=== PATIENT | male | born 1950 | race Caucasian/White ===

== ENCOUNTER 2017-09-29 07:32 | Outpatient (CLI) | payer MEDICARE, BC ==
[2017-09-29] MEDS ORDERED: ISOVUE-370 76%-LOCM 1 ML ONE (13:12)
== END 2017-09-29 07:33 | disposition home or self-care (01) ==
LOC: BICCT 07:32
PROVIDERS: ATTEND Urology
DX: N30.00 Acute cystitis without hematuria (principal); N28.9 Disorder of kidney and ureter, unspecified; M47.896 Other spondylosis, lumbar region; Z98.84 Bariatric surgery status; Z98.890 Other specified postprocedural states
CPT/HCPCS: 36415; 74178; 82565

== ENCOUNTER 2017-11-02 12:31 | Outpatient (CLI) | payer MEDICARE, BC ==
--- NOTE | 2017-11-09 08:12 | PFT ---
PATIENT HISTORY: HEIGHT: 69 WEIGHT:340 SMOKER: QUIT HOW LONG: SMOKED 15 YRS PACKS PER DAY PRODUCTIVE COUGH: LUNG DISEASE: PHYSICIAN INTERPRETATION FINAL REPORT: Lead Based Paint Technician comments patient and good effort and cooperation FVC 2.65 (58%), FEV1 2.15 (70%), FEV1/FVC 0.81. TLC 4.4. (62%), FRC 1.83 (45%), RV 1.60 (62%). Diffusion 18.89 (74%). There is a symmetric reduction in the FEV1 and FVC. The ratio suggests a restrictive profile. Volume restriction is confirmed by the reduced TLC and RV. Diffusion capacity is at the lower limits of normal, but easily corrects for alveolar ventilation. IMPRESSION: These pulmonary function studies are consistent with moderate restrictive lung disease with normal gas exchange. Body habitus is likely contributing to these findings. Lead Based Paint Technician: Director Trade: LOUEI STARKS
== END 2017-11-02 12:32 | disposition home or self-care (01) ==
LOC: CP 12:31
PROVIDERS: ATTEND Internal Medicine
DX: J20.9 Acute bronchitis, unspecified (principal)
CPT/HCPCS: 94010; 94727; 94729

== ENCOUNTER 2017-11-20 20:06 | Emergency (ER) | payer MEDICARE, BC ==
[2017-11-20 20:27] LABS: Bilirubin Negative (Negative); Blood, Urine Large (Negative); Clarity CLEAR (Clear); Glucose, Urine (Dipstick) Negative (Negative); Leukocyte Moderate (Negative); Nitrite Negative (Negative); Protein, Urine (Dipstick) Negative (Neg-Trace); Specific Gravity, Urine 1.012 (1.002-1.036)
[2017-11-20 20:29] LABS: Bacteria/HPF None Seen HPF (None Seen); Hyaline Casts/LPF 0-3 HYALINE CAST LPF (0-3 Hyaline); RBC/HPF GREATER THAN 50-TNTC HPF (0-3); Squamous Epithelial 0-3 HPF (0-3); WBC/HPF 21-50 HPF (0-3)
[2017-11-20 21:33] LABS: #Eosinphils 0.1 thou/uL (0.0-0.7); #Lymphocytes 0.9 thou/uL (1.20-3.40); #Monocytes 0.6 thou/uL (0.11-0.59); #Neutrophils 8.9 thou/uL (1.40-6.50); %Basophils 0.3 % (0.0-1.0); %Lymphocytes 8.5 % (21.0-51.0); %Monocytes 5.4 % (0.0-10.0); %Neutrophils 84.8 % (42.0-75.0); Hemoglobin 15.7 g/dL (14.0-18.0); Mean Corpuscular HGB CONC 34.7 g/dL (32.0-36.0); Mean Corpuscular Hemoglobin 31.4 pg (27.0-31.0); Mean Corpuscular Volume 90.5 fl (80.0-94.0); Mean Platelet Volume 6.7 fL (7.4-10.4); Platelet Count 234 thou/uL (130-400); RBC Distribution Width 12.6 % (11.5-14.5); Red Blood Cell (RBC) Count 5.02 mill/uL (4.70-6.10); White Blood Cell (WBC) Count 10.5 thou/uL (4.8-10.8)
[2017-11-20] MEDS ORDERED: Lidocaine 1% PF 5 ML VIAL ONE (21:44)
[2017-11-20] MEDS ORDERED: cefTRIAXone\\ROCEPHIN 500 MG VIAL ONE (21:44)
[2017-11-20 21:54] LABS: ALT (SGPT) 25 U/L (8-55); AST (SGOT) 20 U/L (5-34); Albumin 4.3 g/dL (3.4-4.8); Alkaline Phosphatase 95 U/L (40-150); Anion Gap 13 mmol/L (10-20); BUN (Urea Nitrogen) 22 mg/dL (8.4-25.7); Bilirubin, Total 0.8 mg/dL (0.2-1.2); Calc. Creatinine Clearance 0 mL/min (70-130); Calcium 9.9 mg/dL (7.8-10.44); Carbon Dioxide 24 mmol/L (23-31); Chloride 104 mmol/L (98-107); Estimated GFR-MDRD 80; Glucose 113 mg/dL (80-115); Potassium 4.1 mmol/L (3.5-5.1); Protein, Total 7.3 g/dL (5.8-8.1); Sodium 137 mmol/L (136-145)
--- NOTE | 2017-11-21 07:50 | ULT ---
TESTICULAR ULTRASOUND: Date: 11/20/17 HISTORY: Epididymitis. FINDINGS: The testicles demonstrate a normal sonographic appearance bilaterally without evidence of a testicula r mass. The right testicle measures 3.4 cm x 1.8 cm x 2.7 cm. The left testicle measures 3.6 cm x 2.0 cm x 2.4 cm. Doppler evaluation of each testicle with spectral analysis and color flow evaluation demonstrates art erial and venous flow in each testicle. The right epididymis does appear enlarged and is heterogeneous in appearance with increased flow asym metrically compared to the left, likely related to epididymitis. There are small, anechoic structures seen within each epididymis, with anechoic structure right epidi dymis measuring 1.1 cm and on the left, there are two anechoic structures measuring 0.8 cm and 0.7 cm , respectively, likely related to epididymal cysts. There are small bilateral hydroceles present. There is a small mobile hyperechoic structure in the inferior aspect of the left scrotum, which may r epresent a small amount of calcification or debris. IMPRESSION: 1. Evidence for right epididymitis. 2. Bilateral epididymal cysts. 3. Normal appearing bilateral testicles. Arterial and venous flow is documented in each testicle. 4. Small bilateral hydroceles. POS: [facility]
== END 2017-11-21 00:32 | disposition home or self-care (01) ==
LOC: ERS 20:06
DX: N45.1 Epididymitis (principal); E03.9 Hypothyroidism, unspecified; I10 Essential (primary) hypertension; Z79.899 Other long term (current) drug therapy
CPT/HCPCS: 36415; 76870; 80053; 81003; 81015; 85025; 87086; 93976; 96372; J0696; J2001

== ENCOUNTER 2017-12-16 14:30 | Outpatient (CLI) | payer MEDICARE, BC ==
--- NOTE | 2017-12-16 16:27 | MRI ---
MR CERVICAL SPINE WITHOUT AND WITHOUT CONTRAST: INDICATION: History of neck pain. CONTRAST: 120 cc of MultiHance. COMPARISON: Prior MR cervical spine from 11/12/15. FINDINGS: Since the comparison examination, there has been interval performance of an ACDF spanning C4 through C7. At C2-C3, there is a small residual central protrusion without appreciable central canal narrowing. At C3-4, there is central protrusion, facet joint degenerative change without appreciable neural fora marylou narrowing. There is mild central canal narrowing. This is stable to the prior exam. At C4-5, there is a residual broad-based bulge inducing stable mild to moderate central canal narrowi ng. There is likely stable mild bilateral neural foraminal narrowing due to residual uncovertebral hy pertrophy. At C5-6, there is a residual disk-osteophyte complex and uncovertebral hypertrophy inducing mild righ t and moderate left neural foraminal narrowing that appears similar to the prior exam. There is stab le mild to moderate central canal narrowing. At C6-7, there is a residual broad-based osteophyte complex inducing mild to moderate central canal n arrowing with mild bilateral neural foraminal narrowing. At C7-T1, there is a broad-based disk bulge with facet joint degenerative change inducing mild left n eural foraminal narrowing which is stable. Post contrast images reveal no definite abnormal enhancement. IMPRESSION: Post procedure change of anterior cervical diskectomy and fusion involving C4 through C7 with residua l central canal and neural foraminal narrowing as above. POS: [facility]
== END 2017-12-16 14:31 | disposition home or self-care (01) ==
LOC: TBSIIMAG 14:30
PROVIDERS: ATTEND Neurological Surgery
DX: M54.12 Radiculopathy, cervical region (principal); M48.02 Spinal stenosis, cervical region; M99.81 Other biomechanical lesions of cervical region; Z98.1 Arthrodesis status; Z98.890 Other specified postprocedural states
CPT/HCPCS: 72156

== ENCOUNTER 2018-03-16 13:41 | Outpatient (CLI) | payer MEDICARE, BC ==
[~2018-03-16 13:41] MED LIST: Iopamidol 370 76% 100 ML VIAL ONE
== END 2018-03-16 13:42 | disposition home or self-care (01) ==
LOC: BICCT 13:41
PROVIDERS: ATTEND Urology
DX: N28.1 Cyst of kidney, acquired (principal); N28.89 Other specified disorders of kidney and ureter; R93.421 Abnormal radiologic findings on diagnostic imaging of right kidney; R93.422 Abnormal radiologic findings on diagnostic imaging of left kidney
CPT/HCPCS: 74170

== ENCOUNTER 2019-05-23 12:49 | Outpatient (CLI) | payer MEDICARE, BC ==
--- NOTE | 2019-05-23 13:15 | RAD ---
CHEST TWO VIEWS: HISTORY: Dyspnea. COMPARISON: 12/28/2017 FINDINGS: Mild cardiomegaly with postop sternotomy change again noted. Lung cui are clear. No evidence of va scular congestion. Pedicle screws and rods are again seen in the spine. IMPRESSION: No acute lung process. POS: [facility]
== END 2019-05-23 12:50 | disposition home or self-care (01) ==
LOC: RAD 12:49
PROVIDERS: ATTEND Internal Medicine
DX: R06.00 Dyspnea, unspecified (principal)
CPT/HCPCS: 71046

== ENCOUNTER 2020-02-29 18:38 | Inpatient (IN) | payer MEDICARE, BC, OTHER ==
[~2020-02-29 18:38] MED LIST changes: -Iopamidol 370 76% 100 ML VIAL ONE; +Iopamidol-370 76% 500 ML 1 ML ONE
[2020-02-29 19:22] LABS: #Lymphocytes 0.9 thou/uL (1.20-3.40); #Monocytes 0.8 thou/uL (0.11-0.59); #Neutrophils 9.7 thou/uL (1.40-6.50); %Eosinophils 0.1 % (0.0-10.0); %Lymphocytes 7.5 % (21.0-51.0); %Monocytes 7.1 % (0.0-10.0); %Neutrophils 85.3 % (42.0-75.0); Mean Corpuscular HGB CONC 33.1 g/dL (32.0-36.0); Mean Corpuscular Hemoglobin 31.6 pg (27.0-31.0); Mean Corpuscular Volume 95.5 fL (78.0-98.0); Mean Platelet Volume 7.2 fL (7.4-10.4); Platelet Count 219 thou/uL (130-400); RBC Distribution Width 13.3 % (11.5-14.5); Red Blood Cell (RBC) Count 3.81 mill/uL (4.70-6.10); White Blood Cell (WBC) Count 11.3 thou/uL (4.8-10.8)
[2020-02-29] MEDS ORDERED: PROVENTIL INHALER 6.7 G (200 INHALATIONS) ONE ×2 (19:24→19:58)
[2020-02-29 19:43] LABS: ALT (SGPT) 68 U/L (8-55); AST (SGOT) 24 U/L (5-34); Albumin 3.8 g/dL (3.4-4.8); Alkaline Phosphatase 61 U/L (40-110); Anion Gap 16 mmol/L (10-20); BUN (Urea Nitrogen) 58 mg/dL (8.4-25.7); Bilirubin, Total 0.4 mg/dL (0.2-1.2); CK (CPK) 58 U/L (30-200); Calc. Creatinine Clearance 0 mL/min (70-130); Calcium 8.8 mg/dL (7.8-10.44); Carbon Dioxide 22 mmol/L (23-31); Chloride 108 mmol/L (98-107); Estimated GFR-MDRD 46; Globulin 2.2 g/dL (2.4-3.5); Glucose 114 mg/dL (83-110); Potassium 3.7 mmol/L (3.5-5.1); Sodium 142 mmol/L (136-145)
[2020-02-29] MEDS ORDERED: Albuterol 200 PUFF (6.7GM INHALER) ONE (20:00)
--- NOTE | 2020-02-29 20:37 | CT ---
Exam: CT angiogram of the chest HISTORY: Shortness of breath. Chest tightness and tachycardia. COMPARISON: 09/01/2015 TECHNIQUE: CT angiogram of the chest is performed in the axial plane. Three-dimensional reformatted i mages are submitted for interpretation FINDINGS: Mediastinum: No mass, lymphadenopathy or hematoma. HEART: Normal heart size. No significant pericardial fluid. Extensive coronary artery disease. Eviden ce of previous CABG. Aorta: No aneurysm or dissection Upper solid abdominal viscera: No acute abnormality. Previous bariatric surgical changes. Trachea and central bronchi: Patent Pleural spaces: No effusion Lung parenchyma: No masses or consolidation. Chronic lung parenchymal changes are noted. Pneumothorax: None Osseous structures: Extensive fusion changes at the mid, distal thoracic spine. Pulmonary arteries: Adequate contrast opacification pulmonary arterial system to the level of segment al arteries. No filling defect to suggest pulmonary embolism IMPRESSION: 1. No evidence of pulmonary artery embolism to the level of segmental arteries 2. Chronic lung parenchymal changes. No acute cardiopulmonary process. No consolidation or mass.
[2020-02-29 22:36] LABS: Base Excess-Venous -3.3 mmol/L (-2.0 to 3.0); Bicarbonate (HCO3v) 22.3 mmol/L (22.0-28.0); CO2 Tension (PvCO2) 41.7 mmHg (40.0-50.0); Chloride 107 mmol/L (98-107); Hemoglobin - Calc 9.7 g/dL (14.0-18.0); Potassium 3.7 mmol/L (3.5-5.1); Sodium 139 mmol/L (138-145); T. Carbon Dioxide 23.6 mmol/L (22.0-28.0); vO2 Saturation-calc 94.3 % (60.0-85.0)
[2020-02-29 23:27] LABS: SARS-CoV-2 NAA Rapid Test Not Detected (NotDetected)
[2020-03-01] MEDS ORDERED: cloNIDine 0.1 MG TAB PO PRN (04:22)
[2020-03-01] MEDS ORDERED: Guaifenesin DM 100-10/5 ML UDCUP PO PRN (04:22)
[2020-03-01] MEDS ORDERED: hydrALAZINE 20 MG/ML VIAL SLOW IVP PRN (04:22)
[2020-03-01] MEDS ORDERED: Morphine 2 MG/ML VIAL SLOW IVP PRN (04:22)
[2020-03-01] MEDS ORDERED: Labetalol HCl 100 MG/20 ML VIAL SLOW IVP PRN (04:22)
[2020-03-01] MEDS ORDERED: HYDROcodone/Acetaminophen 5/325 mg Tablet PO PRN (04:22)
[2020-03-01] MEDS ORDERED: Acetaminophen 325 MG TAB PO PRN (04:22)
[2020-03-01] MEDS ORDERED: Promethazine HCl 12.5 MG in Sodium Chloride 0.9% 50 ML IVPB PRN (04:22)
[2020-03-01] MEDS ORDERED: Ondansetron PF 4 MG/2 ML Vial IVP PRN (04:22)
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
[2020-03-01] MEDS ORDERED: Electrolyte Replacement Protoc 1 EACH EACH FS SCH (04:30)
[2020-03-01 04:42] VITALS: BMI 52.6
[2020-03-01] MEDS ORDERED: Electrolyte Replacement Protocol FS PRN (05:15)
[2020-03-01] MEDS: Liothyronine Sodium 5 MCG TAB PO SCH (05:38)
[2020-03-01 05:56] LABS: Troponin I 0.027 ng/mL (< 0.028)
[2020-03-01] MEDS ORDERED: Liothyronine Sodium 25 MCG TAB PO SCH (06:00)
[2020-03-01 06:14] LABS: Free T4 (Free Thyroxine) 0.8 ng/dL (0.70-1.48); Thyroid Stimulating Hormone 1.5858 uIU/mL (0.35-4.94)
[2020-03-01] MEDS ORDERED: Carvedilol 25 MG TAB PO SCH (08:00)
[2020-03-01] MEDS ORDERED: Amlodipine 10 MG TAB PO SCH (09:00)
[2020-03-01] MEDS ORDERED: Atorvastatin Calcium 40 MG TAB PO SCH (09:00)
[2020-03-01] MEDS ORDERED: Furosemide 40 MG TAB PO SCH (09:00)
[2020-03-01] MEDS ORDERED: Atenolol 50 MG TAB PO SCH (09:00)
[2020-03-01] MEDS: Polyethylene Glycol 3350 17 GM Packet PO SCH (12:53)
[2020-03-01] MEDS: Famotidine 20 MG TAB PO SCH ×2 (12:53→21:00)
[2020-03-01] MEDS: Allopurinol 100 MG TAB PO SCH ×2 (12:54→21:00)
[2020-03-01] MEDS: Atorvastatin Calcium 40 MG TAB PO SCH (12:54)
[2020-03-01] MEDS: Gabapentin 300 MG CAP PO SCH (12:54)
[2020-03-01] MEDS: DULoxetine 60 MG CAP PO SCH (12:54)
[2020-03-01] MEDS: Aspirin Chewable 81 MG TAB PO SCH (12:54)
[2020-03-01 15:03] LABS: Troponin I 0.022 ng/mL (< 0.028)
[2020-03-01] MEDS ORDERED: Sodium Chloride 0.9% 500 ML IV SCH (15:45)
--- NOTE | 2020-03-01 16:09 | CON ---
DATE OF CONSULTATION: 03/01/2020 REASON FOR CONSULTATION: Transient shortness of breath. HISTORY OF PRESENT ILLNESS: Mr. Oliva is a 69-year-old gentleman with history of coronary artery disease as well as morbid obesity. The patient has undergone previous coronary artery bypass grafting as is outlined in the chart in 2016, for significant stenosis in the proximal LAD and the right coronary artery with a very small circumflex vessel. The patient has an ejection fraction of 50% to 55% and has some element of diastolic dysfunction. The patient is on torsemide. He has been taking it every other day, but lately increased it to daily. He has continued to have large amount of diarrhea. The patient states that what brought him to the hospital is he felt lightheaded. When he stood up, his heart rate increased. He went to go see his physician or at least went to seek out medical attention. It was noted that when he stood up, his heart rate went up and when he tried to walk, his heart rate went up further. The patient was sent to the hospital. A CT pulmonary angiogram was negative. He has felt fine since then. A COVID test was negative. No chest pain or pressure. MEDICATIONS: The patient was very confused about his medicines and the home medication list is not accurate. He indicated he was on atenolol and carvedilol, that is not true. He is not on atenolol. He indicated he was on amlodipine. He was not on amlodipine. He thought he was on Lotrel, he was not. He thought on colchicine, I do not think that is correct either. We need to stress the patient. He is to keep an accurate list of his medicines. PAST SURGICAL HISTORY: He has also had bariatric surgery, but unfortunately remains severely obese. REVIEW OF SYSTEMS: As outlined above. PHYSICAL EXAMINATION: GENERAL: This is a pleasant gentleman. VITAL SIGNS: Blood pressure low at 110/60 and pulse 70, it is regular. LUNGS: Clear. CARDIAC: Normal S1. Normal S2. ABDOMEN: Obese and nontender. EXTREMITIES: Warm and dry. No clubbing or cyanosis. There is no edema. Echocardiogram is unremarkable, ejection fraction 50% to 55%. BNP was negative. No evidence of decompensated heart failure. Creatinine was high at 1.5. ASSESSMENT: 1. Lightheadedness and rapid heart rate. It sound like sinus tachycardia as his heart rate was in the 90s sitting, it went higher when he stood, it went even higher when he walked. 2. Volume depletion secondary to diuretic therapy on top of diuresis. PLAN: 1. Okay to me to be released home, but take torsemide every other day. 2. We will go ahead and give him a little bit more fluid. His blood pressure is still relatively low. 3. Okay to me to go home on torsemide every other day, carvedilol 12.5 mg twice a day. He was also taking lisinopril 20 mg a day. The patient could be released home tomorrow. Job ID: [id number]
[2020-03-01 17:16] LABS: Troponin I 0.011 ng/mL (< 0.028)
[2020-03-02 04:33] LABS: #Eosinphils 0.1 thou/uL (0.0-0.7); #Lymphocytes 1.2 thou/uL (1.20-3.40); #Monocytes 0.6 thou/uL (0.11-0.59); #Neutrophils 5.4 thou/uL (1.40-6.50); %Basophils 0.2 % (0.0-1.0); %Eosinophils 1.4 % (0.0-10.0); %Lymphocytes 16.9 % (21.0-51.0); %Monocytes 8.7 % (0.0-10.0); %Neutrophils 72.9 % (42.0-75.0); Hemoglobin 9.7 g/dL (14.0-18.0); Mean Corpuscular Hemoglobin 32.4 pg (27.0-31.0); Mean Corpuscular Volume 95.2 fL (78.0-98.0); Mean Platelet Volume 6.9 fL (7.4-10.4); Platelet Count 160 thou/uL (130-400); RBC Distribution Width 13.3 % (11.5-14.5); Red Blood Cell (RBC) Count 2.98 mill/uL (4.70-6.10); White Blood Cell (WBC) Count 7.4 thou/uL (4.8-10.8)
[2020-03-02 04:57] LABS: Anion Gap 11 mmol/L (10-20); BUN (Urea Nitrogen) 62 mg/dL (8.4-25.7); Calc. Creatinine Clearance 127 mL/min (70-130); Calcium 8.6 mg/dL (7.8-10.44); Carbon Dioxide 22 mmol/L (23-31); Chloride 111 mmol/L (98-107); Estimated GFR-MDRD 56; Glucose 100 mg/dL (83-110); Magnesium 2.5 mg/dL (1.6-2.6); Potassium 3.8 mmol/L (3.5-5.1); Sodium 140 mmol/L (136-145)
[2020-03-02] MEDS: Liothyronine Sodium 5 MCG TAB PO SCH (05:26)
[2020-03-02] MEDS: Aspirin Chewable 81 MG TAB PO SCH (08:25)
[2020-03-02] MEDS: Carvedilol 25 MG TAB PO SCH ×2 (08:25→16:48)
[2020-03-02] MEDS: Allopurinol 100 MG TAB PO SCH ×2 (08:25→21:00)
[2020-03-02] MEDS: Gabapentin 300 MG CAP PO SCH (08:26)
[2020-03-02] MEDS: Polyethylene Glycol 3350 17 GM Packet PO SCH (08:28)
[2020-03-02] MEDS: DULoxetine 60 MG CAP PO SCH (08:28)
[2020-03-02] MEDS: Famotidine 20 MG TAB PO SCH ×2 (08:28→21:00)
[2020-03-02] MEDS ORDERED: Lisinopril 10 MG TAB PO SCH (09:00)
[2020-03-02 09:04] LABS: Hemoglobin 10.6 g/dL (14.0-18.0)
--- NOTE | 2020-03-02 13:00 | DIS ---
DATE OF ADMISSION: 02/29/2020 DATE OF DISCHARGE: 03/02/2020 PRIMARY CARE PROVIDER: German Marei MD DISCHARGE DIAGNOSES: 1. Lightheadedness. 2. Dehydration. 3. Volume depletion secondary to diuretic therapy. 4. Transient shortness of breath. CONDITION OF PATIENT ON THE DAY OF DISCHARGE: Stable. I assessed Mr. Oliva on the day of discharge. He denies any chest pain or shortness of breath. He reports having some loose stools yesterday, but not today. Vital signs are stable. S1 and S2 are heard, regular. Lungs are clear to auscultation bilaterally. CONSULTATIONS DURING THIS HOSPITALIZATION: Cardiology, Dr. Brown. HOSPITAL COURSE: Mr. Oliva is a pleasant 69-year-old gentleman who was admitted to [facility] on February 29, 2020 for transient shortness of breath and lightheadedness. He was found to be volume depleted secondary to diuretic therapy. He was seen by Cardiology Service. 2D echocardiogram showed left ventricular ejection fraction of 50% to 55%, moderately dilated left atrium, no evidence of mitral regurgitation and no significant stenosis or regurgitation. He was advised to decrease his torsemide to one tablet every other day. The patient does not know the dose, but is aware that he needs to change his torsemide to every other day. He is also confused about the remainder of his medications. Based upon the information available, it appears that he will be on: 1. Allopurinol 100 mg 2 times a day. 2. Aspirin 81 mg daily. 3. Coreg 12.5 mg 2 times a day. 4. Vitamin D3, 1000 units daily. 5. Colchicine 0.6 mg 2 times daily. 6. Duloxetine 60 mg at bedtime. 7. Ezetimibe 10 mg daily. 8. Gabapentin 600 mg at bedtime. 9. Levothyroxine 75 mcg daily. 10. Liothyronine 12.5 mcg daily. 11. Lisinopril 20 mg daily. 12. Multivitamins one tablet daily. 13. Cialis 5 mg daily. LABORATORY DATA: On the day of discharge, he has hemoglobin 10.6, hematocrit 31, white count 7400, and platelet count 160,000. Sodium 140, potassium 3.8, creatinine 1.27, and blood urea nitrogen 62. TSH was normal during this hospitalization. COVID-19 test was negative. Many thanks for allowing me to participate in your patient's care. Please feel free to contact me with any questions or concerns. ACTIVITY: As tolerated. DIET: Heart healthy and low-sodium. DISCHARGE MEDICATIONS: Home. POST-ACUTE CARE FOLLOWUP: With primary care provider in 3 days, with Dr. Brown in 2 to 3 weeks. The patient has also been advised to follow up with his audio video mechanic if diarrhea persists. TIME SPENT: Total amount of time spent coordinating this discharge: 32 minutes. Job ID: [id number]
[2020-03-02] MEDS: Pantoprazole 80 MG in Sodium Chloride 0.9% 100 ML IVPB SCH (18:46)
--- NOTE | 2020-03-02 19:12 | PDOC.HOSPP ---
- Subjective Encounter Date: 03/02/20 Encounter Time: 19:11 Subjective: Pt seen for followup re: melena. c/o black stools since yesterday. - Objective Vital Signs & Weight: Vital Signs (12 hours) Temp Pulse Resp BP Pulse Ox 03/02/20 16:32 97.4 F L 57 L 20 128/64 97 03/02/20 12:13 97.8 F 55 L 15 133/64 100 03/02/20 08:20 97.5 F L 52 L 18 125/64 97 Weight Weight 372 lb 1.6 oz I&O: 03/01/20 03/02/20 03/03/20 06:59 06:59 06:59 Intake Total 240 1320 Balance 240 1320 Result Diagrams: 03/02/20 08:48 03/02/20 04:22 Additional Labs: Labs and MARs reviewed by me EKG Reviewed by me: Yes (tele:NSR) Hospitalist ROS - Review of Systems Cardiovascular: denies: chest pain, palpitations, orthopnea, paroxysmal noc. dyspnea, edema, light headedness Gastrointestinal: reports: diarrhea, melena. denies: nausea, vomiting, abdominal pain, constipation, hematochezia - Medication Medications: Active Medications Generic Name Dose Route Start Last Admin Trade Name Freq PRN Reason Stop Dose Admin Allopurinol 100 mg 03/01/20 09:00 03/02/20 08:25 Zyloprim PO 100 mg BID GEREMIAS Administration Aspirin 81 mg 03/01/20 09:00 03/02/20 08:25 Aspirin Chewable PO 81 mg DAILY GEREMIAS Administration Atorvastatin Calcium 40 mg 03/01/20 21:00 03/01/20 12:54 Lipitor PO 40 mg HS GEREMIAS Administration Carvedilol 12.5 mg 03/02/20 08:00 03/02/20 16:48 Coreg PO 12.5 mg BID-WM GEREMIAS Administration Duloxetine HCl 60 mg 03/01/20 09:00 03/02/20 08:28 Cymbalta PO 60 mg DAILY GEREMIAS Administration Famotidine 20 mg 03/01/20 09:00 03/02/20 08:28 Pepcid PO 20 mg BID GEREMIAS Administration Gabapentin 600 mg 03/01/20 09:00 03/02/20 08:26 Neurontin PO Not Given DAILY GEREMIAS Pantoprazole Sodium 80 mg/ 100 mls @ 10 mls/hr 03/02/20 16:30 03/02/20 18:46 Sodium Chloride IVPB 100 mls INF GEREMIAS Administration Liothyronine Sodium 12.5 mcg 03/01/20 06:00 03/02/20 05:26 Cytomel PO 12.5 mcg 0600 GEREMIAS Administration Lisinopril 10 mg 03/02/20 09:00 03/02/20 08:27 Zestril PO 10 mg DAILY GEREMIAS Administration Polyethylene Glycol 17 gm 03/01/20 09:00 03/02/20 08:28 Miralax PO Not Given DAILY GEREMIAS - Exam General Appearance: awake alert General - other findings: Morbid obesity Eye: anicteric sclera ENT: moist mucosa Neck: supple Heart: RRR Respiratory: CTAB Gastrointestinal: soft, non-tender Extremities: no cyanosis Psychiatric: normal affect, normal behavior Hosp A/P - Plan #1. Melena: Patient reported melena that has been going on since yesterday. Hemoglobin dropped initially, subsequently increased. However, his blood urea nitrogen is elevated in the context of a normal creatinine. We will start him on PPI drip. GI service will be consulted for opinion and help with management. Discontinue aspirin for now. Repeat H&H at 9 PM. 2. Dehydration: Patient improved with intravenous fluids. BUN still elevated, could be secondary to upper GI bleed. 3.. Morbid obesity 4. Obstructive sleep apnea syndrome: Patient is using CPAP while asleep.
[2020-03-02] MEDS ORDERED: Gabapentin 300 MG CAP PO SCH (21:00)
[2020-03-02] MEDS: Atorvastatin Calcium 40 MG TAB PO SCH (21:00)
[2020-03-03 04:02] LABS: #Eosinphils 0.2 thou/uL (0.0-0.7); #Monocytes 0.6 thou/uL (0.11-0.59); #Neutrophils 4.6 thou/uL (1.40-6.50); %Basophils 0.5 % (0.0-1.0); %Eosinophils 2.6 % (0.0-10.0); %Lymphocytes 15.7 % (21.0-51.0); %Monocytes 8.8 % (0.0-10.0); %Neutrophils 72.5 % (42.0-75.0); Hemoglobin 9.2 g/dL (14.0-18.0); Mean Corpuscular HGB CONC 33.4 g/dL (32.0-36.0); Mean Corpuscular Hemoglobin 31.5 pg (27.0-31.0); Mean Corpuscular Volume 94.4 fL (78.0-98.0); Mean Platelet Volume 7.7 fL (7.4-10.4); Platelet Count 175 thou/uL (130-400); RBC Distribution Width 13.5 % (11.5-14.5); Red Blood Cell (RBC) Count 2.91 mill/uL (4.70-6.10); White Blood Cell (WBC) Count 6.4 thou/uL (4.8-10.8)
[2020-03-03 04:32] LABS: Anion Gap 9 mmol/L (10-20); BUN (Urea Nitrogen) 46 mg/dL (8.4-25.7); Calc. Creatinine Clearance 148 mL/min (70-130); Calcium 8.4 mg/dL (7.8-10.44); Carbon Dioxide 23 mmol/L (23-31); Chloride 111 mmol/L (98-107); Estimated GFR-MDRD 67; Glucose 96 mg/dL (83-110); Magnesium 2.4 mg/dL (1.6-2.6); Potassium 3.9 mmol/L (3.5-5.1); Sodium 139 mmol/L (136-145)
[2020-03-03] MEDS: Pantoprazole 80 MG in Sodium Chloride 0.9% 100 ML IVPB SCH (05:07)
[2020-03-03] MEDS: Liothyronine Sodium 5 MCG TAB PO SCH (05:13)
[2020-03-03 07:20] VITALS: TEMP 97
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
[2020-03-03] MEDS ORDERED: PROPOFOL 200 MG/20 ML VIAL ONE (09:37)
[2020-03-03] MEDS: DULoxetine 60 MG CAP PO SCH (10:25)
[2020-03-03] MEDS: Polyethylene Glycol 3350 17 GM Packet PO SCH (10:26)
[2020-03-03] MEDS: Allopurinol 100 MG TAB PO SCH (10:26)
[2020-03-03] MEDS: Carvedilol 25 MG TAB PO SCH (10:31)
--- NOTE | 2020-03-03 10:41 | OP ---
DATE OF PROCEDURE: 03/03/2020 ENROLLER SURGEON: None. PROCEDURE PERFORMED: Esophagogastroduodenoscopy, diagnostic. INDICATIONS: 1. Melena. 2. Acute blood loss anemia. 3. Prior history of Albaro-en-Y gastric bypass. MEDICATIONS: See Anesthesia record. FINDINGS: After discussion of the risks, benefits, and alternatives of the procedure, informed consent was obtained and witnessed. Pre-endoscopic cardiopulmonary examination was satisfactory. Time-out was performed before sedation was achieved. Sedation was achieved with Anesthesia assistance in the endoscopy unit. A Pentax adult upper endoscope was placed into the oropharynx and passed through the cricopharyngeus under direct visualization. The esophageal mucosa appeared normal throughout with a normal-appearing Z-line. The endoscope was advanced into the gastric pouch. The mucosa of the gastric pouch appeared normal. There was some exposed suture material just proximal to the gastrojejunal anastomosis. The endoscope was advanced to the gastrojejunal anastomosis. There was no evidence of stricture. Just beyond the anastomosis, there was a cratered ulceration measuring about 8 mm in diameter. This was clean based with no signs of bleeding and no high-risk stigmata for rebleeding, but likely represents his recent bleeding site. No endoscopic intervention was performed given the appearance of the ulceration. The endoscope was advanced down the efferent limb to a distance of 100 cm for examination of the small bowel mucosa. The small bowel mucosa appeared completely normal to the extent examined. There was no old blood or active bleeding demonstrated on this exam. The distal anastomosis was not reached. The endoscope was then completely withdrawn and the patient allowed to recover. The patient tolerated the procedure well. There were no immediate postprocedure complications. IMPRESSION: 1. Single 8 mm cratered nonbleeding, clean based ulcer, just beyond the gastrojejunal anastomosis. No endoscopic intervention was necessary. 2. Otherwise, normal post Albaro-en-Y gastric bypass anatomy, examined down the efferent limb to 100 cm. The distal anastomosis was not reached. 3. No old blood or active bleeding demonstrated on this examination. RECOMMENDATIONS: 1. The patient will need aggressive acid suppression with pantoprazole 40 mg twice daily for the next 2 months. 2. Advance diet. 3. Follow up in the GI Clinic with Dr. Levin or physician compliance assistant in the next 2 to 3 weeks. 4. The appearance of the ulcer is low risk for significant rebleeding. If the patient is doing well this afternoon, okay for hospital discharge from a GI perspective. GI will sign off. Please call back if needed. Job ID: [id number]
[2020-03-03 11:02] LABS: Hemoglobin 10.3 g/dL (14.0-18.0)
[2020-03-03 11:33] LABS: Iron 78 ug/dL (65-175); Iron Binding Capacity, Total 338 mcg/dL (261-462)
[2020-03-03 12:15] VITALS: BP 184/83
--- NOTE | 2020-03-04 14:00 | DIS ---
DATE OF ADMISSION: 02/29/2020 DATE OF DISCHARGE: 03/03/2020 DISCHARGE DISPOSITION: Home. FOLLOWUP: 1. Follow up with primary care physician, Dr. German Marie in 1 week. 2. Follow up with Cardiology, Dr. Brown and Gastroenterology, Dr. Gregoria Leivn in 2 weeks. ALLERGIES: THE PATIENT IS ALLERGIC TO PENICILLIN, SULFA AND LEVAQUIN. THE PATIENT WAS SEEN AND EXAMINED ON THE DAY OF DISCHARGE. DENIES ANY NEW COMPLAINTS. NO CHEST PAIN, SHORTNESS OF BREATH, PALPITATIONS REPORTED. BRIEF HOSPITAL COURSE: The patient is a 69-year-old male with coronary artery disease, obesity, status post bariatric surgery in the past, presented to the hospital with near syncope along with shortness of breath. Please refer to the history and physical for further details. The patient was admitted to the telemetry unit. He was evaluated by Cardiology, Dr. Brown. His troponins remained negative. His torsemide dose was reduced due to acute kidney injury with creatinine 1.5 on admission. At discharge, his creatinine is 1.09. He was advised to reduce torsemide to one tablet every other day. He was cleared by Cardiology for discharge. The patient started having melena during this hospital stay. Stool for occult blood came back positive. His BUN was also elevated at 62 from 58 on admission. The patient was evaluated by Gastroenterology, Dr. Hicks. An EGD was done on the day of discharge that showed single 8 mm crated, nonbleeding, clean-based ulcer just beyond the gastrojejunal anastomosis. There was no active bleeding noted. He was advised to follow up with Dr. Gregoria Levin as outpatient. He will be started on Protonix 40 mg b.i.d. for 2 months. He will be discharged later today once stable. FINAL DIAGNOSES: 1. Near syncope with exertional shortness of breath, multifactorial. 2. Acute kidney injury on chronic kidney disease stage 2, probably secondary to diuretics. 3. Acute upper GI bleeding status post EGD. 4. Acute GI blood loss anemia. His hemoglobin on admission was 12. At discharge it was 10.3. Lowest hemoglobin this admission was 9.2. 5. Obesity with a BMI of 52.5. 6. Coronary artery disease. 7. Hypothyroidism. 8. Hypertension. 9. Anxiety. 10. Degenerative joint disease. 11. Gout. 12. Benign prostatic hypertrophy. 13. History of MRSA infection in the past. 14. History of CABG in the past. The patient understands the above plan of care. Job ID: [id number]
--- NOTE | 2020-03-06 06:05 | PQF ---
CLINICAL DOCUMENTATION CLARIFICATION FORM: Dear : Reed Lala Date / Time: 03/06/20604 Please exercise your independent, professional judgment in responding to the clarification form. Clinical indicators are provided on the bottom of this form for your review In your clinical opinion based on clinical findings below, can you please identify the condition as the reason for Inpatient admission if due to: Please check appropriate box(es): [ x ] Acute Kidney Injury [ x ] Dehydration [ x ] Volume Depletion [ x ] Other diagnosis GI bleed [ ] Unable to determine Physician Signature: Date/Time: For continuity of documentation, please document condition throughout progress notes and discharge summary. Thank You. To be completed by CDI/Coding staff for physician review: Present Clinical Indicators - Signs / Symptoms / Labs Results and Location in Medical Record [X] BP 137/67, Pulse 104, Resp 18, Temp 98.1 Vital signs 03/01 [X] Creatinine 1.51, BUN 58, GFR 46 Laboratory 02/28 [X] Pt reports new nausea, SOB with minimal exertion H&P p1 02/28 Dr Gavin [X] JOSE RAMON H&P p3 02/28 Dr Gavin [X] Lightheadedness DS p1 03/02 Dr Klein [X] Dehydration DS p1 03/02 Dr Klein [X] Volume depletion secondary to diuretic therapy DS p1 03/02 Dr Klein Present Risk Factors Results and Location in Medical Record [X] 69 year-old Male H&P p1 02/28 Dr Gavin [X] CAD with CABG H&P p2 02/28 Dr Gavin [X] HTN H&P p2 02/28 Dr Gavin [X] BPH H&P p2 02/28 Dr Gavin [X] Hypothyroidism H&P p2 02/28 Dr Gavin [X] Obesity H&P p2 02/28 Dr Gavin [X] CKD stage 2 DS 03/03 Present Treatments Results and Location in Medical Record [X] IVF NS 1L OCT 06 [X] Laboratory monitoring H&P p2 02/28 Dr Gavin [X] Change Torsemide DS p1 03/02 Dr Klein CDS/[employer] Signature: Christine Abbott Phone #: [phone] Date/Time: 03/06/20604 This is a permanent part of the Medical Record [facility]
== END 2020-03-03 16:30 | disposition home or self-care (01) | DRG 682 ==
LOC: ERS 18:38 → ERHOLD 21:10 → 2NO 03-01 04:43
PROVIDERS: ADMIT Internal Medicine; ATTEND Internal Medicine
PROC: 0DJ08ZZ Inspection of Upper Intestinal Tract, Via Natural or Artificial Opening Endoscopic (ICD-10-PCS; principal; 2020-03-03)
DX: N17.9 Acute kidney failure, unspecified (principal); K28.4 Chronic or unspecified gastrojejunal ulcer with hemorrhage; D62 Acute posthemorrhagic anemia; Z68.43 Body mass index [BMI] 50.0-59.9, adult; E86.9 Volume depletion, unspecified; E86.0 Dehydration; Z20.828 Contact with and (suspected) exposure to other viral communicable diseases; N18.2 Chronic kidney disease, stage 2 (mild); T50.1X5A Adverse effect of loop [high-ceiling] diuretics, initial encounter; I25.10 Atherosclerotic heart disease of native coronary artery without angina pectoris; E03.9 Hypothyroidism, unspecified; I12.9 Hypertensive chronic kidney disease with stage 1 through stage 4 chronic kidney disease, or unspecified chronic kidney disease; F41.9 Anxiety disorder, unspecified; M19.90 Unspecified osteoarthritis, unspecified site; M10.9 Gout, unspecified; N40.0 Benign prostatic hyperplasia without lower urinary tract symptoms; T38.0X5A Adverse effect of glucocorticoids and synthetic analogues, initial encounter; D72.829 Elevated white blood cell count, unspecified; E66.01 Morbid (severe) obesity due to excess calories; R00.0 Tachycardia, unspecified; G47.33 Obstructive sleep apnea (adult) (pediatric); Z79.899 Other long term (current) drug therapy; Z95.1 Presence of aortocoronary bypass graft; Z86.14 Personal history of Methicillin resistant Staphylococcus aureus infection; Z11.59 Encounter for screening for other viral diseases; Z79.890 Hormone replacement therapy; Z88.1 Allergy status to other antibiotic agents; Z88.0 Allergy status to penicillin; Z88.2 Allergy status to sulfonamides
CPT/HCPCS: 36415; 36416; 71275; 80048; 80053; 82274; 82330; 82550; 82728; 82803; 83540; 83550; 83735; 83880; 84439; 84443; 84484; 85025; 86850; 86900; 86901; 93005; 93306; 96360; 96361; C9113; J2704; J3490; Q9967; U0002

== ENCOUNTER 2020-11-15 07:21 | Outpatient (CLI) | payer MEDICARE, BC ==
[2020-11-15] MEDS ORDERED: Iopamidol 370 76% 100 ML VIAL ONE (09:34)
== END 2020-11-15 07:22 | disposition home or self-care (01) ==
LOC: CT 07:21
PROVIDERS: ATTEND Urology
DX: N28.1 Cyst of kidney, acquired (principal)
CPT/HCPCS: 74170; 82565; Q9967

== ENCOUNTER 2021-03-14 10:07 | Outpatient (CLI) | payer MEDICARE, BC ==
[2021-03-14 11:39] LABS: Bilirubin Neg (Negative); Blood, Urine Negative (Negative); Clarity Clear (Clear); Glucose, Urine (Dipstick) Normal (Negative); Ketone, Urine Negative (Negative); Leukocyte Negative (Negative); Nitrite Negative (Negative); Protein, Urine (Dipstick) 15 mg/dl (Neg-Trace)
[2021-03-14 11:50] LABS: #Eosinphils 0.3 10x3/uL (0.0-0.5); #Monocytes 0.5 10x3/uL (0.0-1.1); #Neutrophils 3.2 10x3/uL (1.5-8.4); %Basophils 0.6 % (0.0-2.0); %Eosinophils 5.5 % (0.0-6.0); %Lymphocytes 17.9 % (18.0-47.0); %Monocytes 10.3 % (0.0-10.0); %Neutrophils 65.5 % (40.0-75.0); Hemoglobin 14.4 g/dL (13.5-17.5); Mean Corpuscular HGB CONC 33.2 g/dL (32.0-36.0); Mean Corpuscular Hemoglobin 31.2 pg (27.0-33.0); Mean Corpuscular Volume 93.9 fl (81.2-95.1); Mean Platelet Volume 9.7 fl (7.4-10.4); Platelet Count 185 10x3/uL (150-450); RBC Distribution Width 12.7 % (11.5-14.5); Red Blood Cell (RBC) Count 4.62 10x6/uL (4.32-5.72); White Blood Cell (WBC) Count 4.9 10x3/uL (3.5-10.5)
[2021-03-14 12:00] LABS: Prothrombin Time 11.2 sec (9.5-12.1)
[2021-03-14 12:09] LABS: Anion Gap 13 mmol/L (10-20); BUN (Urea Nitrogen) 20 mg/dL (8.4-25.7); Calc. Creatinine Clearance 0 mL/min (70-130); Calcium 9.5 mg/dL (7.8-10.44); Carbon Dioxide 22 mmol/L (23-31); Chloride 109 mmol/L (98-107); Glucose 90 mg/dL (83-110); Potassium 4.4 mmol/L (3.5-5.1); Sodium 140 mmol/L (136-145)
[2021-03-14 12:14] LABS: Bacteria/HPF None Seen HPF (None Seen); RBC/HPF 0-3 HPF (0-3); Squamous Epithelial None Seen HPF (0-3); WBC/HPF None Seen HPF (0-3)
[2021-03-15 16:37] LABS: SARS-CoV-2 PCR by NAA Not Detected (NotDetected)
== END 2021-03-14 10:08 | disposition home or self-care (01) ==
LOC: LABBT 10:07
PROVIDERS: ATTEND Orthopaedic Surgery
DX: Z01.818 Encounter for other preprocedural examination (principal); M17.12 Unilateral primary osteoarthritis, left knee; Z20.822 Contact with and (suspected) exposure to COVID-19
CPT/HCPCS: 80048; 81001; 85025; 85610; 87081; 93005; U0003; U0005; 93010

== ENCOUNTER 2021-03-18 05:37 | Inpatient (IN) | payer MEDICARE, BC ==
[2021-03-18] MEDS ORDERED: Fentanyl 100 MCG/2 ML VIAL ONE ×5 (05:52→09:57)
[2021-03-18] MEDS ORDERED: Tranexamic Acid 1,000 MG/10 ML VIAL ONE (05:57)
[2021-03-18] MEDS ORDERED: Sodium Chloride 0.9% 100 ML ONE (05:57)
[2021-03-18] MEDS ORDERED: Lidocaine 2% Jelly 5 ML TUBE ONE (06:08)
[2021-03-18] MEDS ORDERED: Gentamicin Sulfate 120 MG in Premix Bag 1 BAG IVPB SCH (06:15)
[2021-03-18] MEDS ORDERED: Midazolam HCl 2 mg/2 ml Vial ONE (06:41)
[2021-03-18] MEDS ORDERED: Lidocaine 1% (PF) 30 ML VIAL ONE (06:42)
[2021-03-18] MEDS ORDERED: PROPOFOL 200 MG/20 ML VIAL ONE (07:22)
[2021-03-18] MEDS ORDERED: Glycopyrrolate 0.2 MG/ML 5 ML SYRINGE ONE (07:22)
[2021-03-18] MEDS ORDERED: Dexamethasone 20 MG/5 ML VIAL ONE (07:22)
[2021-03-18] MEDS ORDERED: Rocuronium Bromide 10 MG/ML (10ML VIAL) ONE (07:22)
[2021-03-18] MEDS ORDERED: Ondansetron PF 4 MG/2 ML Vial ONE (07:22)
[2021-03-18] MEDS ORDERED: Succinylcholine 200 MG/10 ml SYRINGE FS ONE (07:22)
[2021-03-18] MEDS ORDERED: ePHEDrine 50 MG/ML VIAL ONE (07:22)
[2021-03-18] MEDS ORDERED: PHENYLEPHRINE-NS 100 MCG/ML 10 ML SYRINGE ONE (07:22)
[2021-03-18] MEDS ORDERED: Bupivacaine HCl 0.5%/Epinephrine 1:200,000/PF 30 ml Vial ONE (07:22)
[2021-03-18] MEDS ORDERED: Ropivacaine 2% HCl/PF (20 MG/10 ML VIAL) ONE (07:22)
[2021-03-18] MEDS ORDERED: Lidocaine 1% PF 5 ML VIAL ONE (07:22)
[2021-03-18] MEDS ORDERED: Ondansetron PF 4 MG/2 ML Vial IVP PRN ×2 (07:30→09:18)
[2021-03-18] MEDS ORDERED: Promethazine HCl 25 MG/ML VIAL IM PRN ×3 (07:30→09:18)
[2021-03-18] MEDS ORDERED: Fentanyl 100 MCG/2 ML VIAL IV PRN (07:30)
[2021-03-18] MEDS ORDERED: HYDROcodone/Acetaminophen 10/325 mg Tablet PO PRN (07:30)
[2021-03-18] MEDS ORDERED: traMADol HCl 50 MG TAB PO PRN ×2 (07:30)
[2021-03-18] MEDS ORDERED: Ropivacaine 0.2% 550 ML 550 ML NERVE BLCK SCH (07:30)
[2021-03-18] MEDS ORDERED: Zolpidem Tartrate 5 MG TAB PO PRN ×2 (07:30→09:18)
[2021-03-18] MEDS ORDERED: Promethazine HCl 25 MG/ML VIAL IVPB PRN (08:03)
[2021-03-18] MEDS ORDERED: Ondansetron HCl/PF 4 MG/2 ML Vial IVP PRN (08:03)
[2021-03-18] MEDS ORDERED: Cyanocobalamin 1000 MCG/ML VIAL IM SCH (09:00)
[2021-03-18] MEDS ORDERED: Acetaminophen 325 MG TAB PO PRN (09:18)
[2021-03-18] MEDS ORDERED: diphenhydrAMINE 25 MG CAP PO PRN (09:18)
[2021-03-18] MEDS ORDERED: Acetaminophen 500 MG TAB PO PRN (09:20)
[2021-03-18] MEDS: Sodium Chloride 0.9% 1,000 ML IV SCH ×2 (09:30→20:33)
[2021-03-18] MEDS: Ketorolac Tromethamine 30 MG/ML VIAL IVP SCH ×3 (12:24→23:52)
[2021-03-18] MEDS ORDERED: VANCOMYCIN 2 GRAM/400 ML BAG 2 GM in Premix Bag 1 BAG IVPB SCH (18:00)
[2021-03-18 18:21] VITALS: BMI 48.9
[2021-03-18] MEDS: VANCOMYCIN 2 GRAM/400 ML BAG 2 GM in Premix Bag 1 BAG IVPB SCH ×2 (18:23→18:36)
[2021-03-18] MEDS: Fluticasone Propionate Nasal Spray 16 gm Bottle NASAL SCH (18:24)
[2021-03-18] MEDS: Senokot S 8.6-50 MG TAB PO SCH (20:32)
[2021-03-18] MEDS: DULoxetine 60 MG CAP PO SCH (20:32)
[2021-03-18] MEDS: Lisinopril 20 MG TAB PO SCH (20:32)
[2021-03-18] MEDS: Atorvastatin Calcium 40 MG TAB PO SCH (20:32)
[2021-03-18] MEDS: Gabapentin 300 MG CAP PO SCH (20:32)
[2021-03-18] MEDS: Ferrous Gluconate 324 MG TAB PO SCH (20:32)
[2021-03-18] MEDS: Allopurinol 100 MG TAB PO SCH (20:33)
[2021-03-18] MEDS: Carvedilol 6.25 MG TAB PO SCH (20:33)
[2021-03-18] MEDS ORDERED: Non-Formulary Item 1 EACH (Gabapentin [Gabapentin] 600 MG Tablet) PO SCH (21:00)
[2021-03-18] MEDS ORDERED: Non-Formulary Item 1 EACH (Fluticasone Propionate [Flonase Allergy Relief] 9.9 ML Bottle) EA NARE SCH (21:00)
[2021-03-18] MEDS ORDERED: Aspirin 81 mg Enteric Coated Tablet PO SCH (21:00)
[2021-03-19] MEDS: Ketorolac Tromethamine 30 MG/ML VIAL IVP SCH ×3 (05:19→16:34)
[2021-03-19] MEDS: Fluticasone Propionate Nasal Spray 16 gm Bottle NASAL SCH ×3 (05:20→18:57)
[2021-03-19 05:37] LABS: Hemoglobin 12.8 g/dL (14.0-18.0); Mean Corpuscular HGB CONC 33.3 g/dL (32.0-36.0); Mean Corpuscular Hemoglobin 31.8 pg (27.0-31.0); Mean Corpuscular Volume 95.5 fL (78.0-98.0); Mean Platelet Volume 7.1 fL (7.4-10.4); Platelet Count 169 thou/uL (130-400); Red Blood Cell (RBC) Count 4.04 mill/uL (4.70-6.10)
[2021-03-19] MEDS ORDERED: Non-Formulary Item 1 EACH (Multivitamin [Multi-Vitamin Daily] 1 TABLET Tablet) PO SCH (09:00)
[2021-03-19] MEDS ORDERED: Cholecalciferol 1,000 UNITS (25 MCG) TAB PO SCH (09:00)
[2021-03-19] MEDS ORDERED: Liothyronine Sodium 25 MCG TAB PO SCH (09:00)
[2021-03-19] MEDS ORDERED: Multivit, Therapeutic 1 TAB PO SCH (09:00)
[2021-03-19] MEDS: Levothyroxine Sodium 75 MCG TAB PO SCH (09:19)
[2021-03-19] MEDS: Montelukast Sodium 10 mg Tablet PO SCH (09:19)
[2021-03-19] MEDS: Aspirin 81 mg Enteric Coated Tablet PO SCH (09:19)
[2021-03-19] MEDS: Multivitamin W/ Minerals 1 TAB PO SCH (09:19)
[2021-03-19] MEDS: Senokot S 8.6-50 MG TAB PO SCH ×2 (09:19→22:00)
[2021-03-19] MEDS: Ezetimibe 10 MG TAB PO SCH (09:19)
[2021-03-19] MEDS: Cholecalciferol 1,000 UNITS (25 MCG) TAB PO SCH (09:20)
[2021-03-19] MEDS: Allopurinol 100 MG TAB PO SCH ×2 (09:20→21:58)
[2021-03-19] MEDS: Ferrous Gluconate 324 MG TAB PO SCH ×2 (09:20→21:59)
[2021-03-19] MEDS: Carvedilol 6.25 MG TAB PO SCH ×2 (09:21→22:01)
[2021-03-19] MEDS: Sodium Chloride 0.9% 1,000 ML IV SCH (16:13)
[2021-03-19] MEDS: HYDROcodone/Acetaminophen 10/325 mg Tablet PO PRN (16:35)
[2021-03-19] MEDS: Lisinopril 20 MG TAB PO SCH (21:59)
[2021-03-19] MEDS: Gabapentin 300 MG CAP PO SCH (21:59)
[2021-03-19] MEDS: DULoxetine 60 MG CAP PO SCH (21:59)
[2021-03-19] MEDS: Atorvastatin Calcium 40 MG TAB PO SCH (22:01)
[2021-03-20] MEDS: Ketorolac Tromethamine 30 MG/ML VIAL IVP SCH ×2 (00:25→06:13)
[2021-03-20] MEDS: HYDROcodone/Acetaminophen 10/325 mg Tablet PO PRN ×2 (00:27→06:16)
[2021-03-20] MEDS: Sodium Chloride 0.9% 1,000 ML IV SCH (04:46)
[2021-03-20 08:20] VITALS: TEMP 96.6
[2021-03-20] MEDS: Senokot S 8.6-50 MG TAB PO SCH (08:57)
[2021-03-20] MEDS: Ezetimibe 10 MG TAB PO SCH (09:00)
[2021-03-20] MEDS: Carvedilol 6.25 MG TAB PO SCH (09:00)
[2021-03-20] MEDS: Aspirin 81 mg Enteric Coated Tablet PO SCH (09:00)
[2021-03-20] MEDS: Montelukast Sodium 10 mg Tablet PO SCH (09:01)
[2021-03-20] MEDS: Levothyroxine Sodium 75 MCG TAB PO SCH (09:01)
[2021-03-20] MEDS: Cholecalciferol 1,000 UNITS (25 MCG) TAB PO SCH (09:01)
[2021-03-20] MEDS: Ferrous Gluconate 324 MG TAB PO SCH (09:01)
[2021-03-20] MEDS: Multivitamin W/ Minerals 1 TAB PO SCH (09:01)
[2021-03-20] MEDS: Allopurinol 100 MG TAB PO SCH (09:02)
[2021-03-20] MEDS: Fluticasone Propionate Nasal Spray 16 gm Bottle NASAL SCH (09:05)
[2021-03-20 12:15] VITALS: BP 134/69
== END 2021-03-20 14:03 | disposition home or self-care (01) | DRG 470 ==
LOC: SDC 05:37 → SURG B 09:19
PROVIDERS: ADMIT Orthopaedic Surgery; ATTEND Orthopaedic Surgery
PROC: 0SRD0J9 Replacement of Left Knee Joint with Synthetic Substitute, Cemented, Open Approach (ICD-10-PCS; principal; 2021-03-18)
DX: M17.12 Unilateral primary osteoarthritis, left knee (principal); Z68.42 Body mass index [BMI] 45.0-49.9, adult; I42.9 Cardiomyopathy, unspecified; Z23 Encounter for immunization; E03.9 Hypothyroidism, unspecified; E66.01 Morbid (severe) obesity due to excess calories; I10 Essential (primary) hypertension; E78.5 Hyperlipidemia, unspecified; I25.10 Atherosclerotic heart disease of native coronary artery without angina pectoris; N40.0 Benign prostatic hyperplasia without lower urinary tract symptoms; I25.2 Old myocardial infarction; Z87.891 Personal history of nicotine dependence; Z79.899 Other long term (current) drug therapy; Z79.890 Hormone replacement therapy; Z79.82 Long term (current) use of aspirin
CPT/HCPCS: 36415; 85027; 90471; 90732; A4306; C1713; C1776; G0009; J1100; J1580; J1885; J2001; J2250; J2405; J2704; J2795; J3010; J3370; J3420; J3490

== ENCOUNTER 2021-05-18 12:08 | Emergency (ER) | payer MEDICARE, BC ==
[2021-05-18 14:25] LABS: Bacteria/HPF None Seen HPF (None Seen); Bilirubin Negative (Negative); Blood, Urine 3+ (Negative); Clarity Clear (Clear); Glucose, Urine (Dipstick) Normal (Negative); Ketone, Urine Negative (Negative); Leukocyte 75 Leu/uL (Negative); Nitrite Negative (Negative); Protein, Urine (Dipstick) Negative (Neg-Trace); RBC/HPF Greater than 50 HPF (0-3); Specific Gravity, Urine 1.018 (1.002-1.036); Squamous Epithelial None Seen HPF (0-3); Urobilinogen Normal mg/dL (Less than 2); pH, Urine 5.5 (5.0-9.0)
== END 2021-05-18 14:30 | disposition home or self-care (01) ==
LOC: ERS 12:08
DX: R33.9 Retention of urine, unspecified (principal); E03.9 Hypothyroidism, unspecified; I10 Essential (primary) hypertension; Z79.899 Other long term (current) drug therapy
CPT/HCPCS: 51702; 81003; 81015; 87077; 87086; 87186

== ENCOUNTER 2021-07-09 11:34 | Outpatient (CLI) | payer MEDICARE, BC ==
[2021-07-09 12:50] LABS: Hemoglobin 13.2 g/dL (13.5-17.5); Mean Corpuscular HGB CONC 32.1 g/dL (32.0-36.0); Mean Corpuscular Hemoglobin 29.2 pg (27.0-33.0); Mean Corpuscular Volume 90.9 fl (81.2-95.1); Mean Platelet Volume 10.2 fl (7.4-10.4); Platelet Count 175 10x3/uL (150-450); RBC Distribution Width 13.5 % (11.5-14.5); Red Blood Cell (RBC) Count 4.52 10x6/uL (4.32-5.72); White Blood Cell (WBC) Count 4.8 10x3/uL (3.5-10.5)
[2021-07-09 12:58] LABS: Anion Gap 12 mmol/L (10-20); BUN (Urea Nitrogen) 13 mg/dL (8.4-25.7); Calc. Creatinine Clearance 0 mL/min (70-130); Calcium 9.2 mg/dL (7.8-10.44); Carbon Dioxide 23 mmol/L (23-31); Chloride 112 mmol/L (98-107); Glucose 90 mg/dL (83-110); Sodium 143 mmol/L (136-145)
[2021-07-09 13:00] LABS: INR-International Normal Ratio 1.1; PTT 25.6 sec (22.0-33.0); Prothrombin Time 11.7 sec (9.5-12.1)
[2021-07-09 15:28] LABS: ALT (SGPT) 21 U/L (8-55); AST (SGOT) 21 U/L (5-34); Albumin 3.8 g/dL (3.4-4.8); Alkaline Phosphatase 90 U/L (40-110); Bilirubin, Direct 0.5 mg/dL (0.1-0.3); Protein, Total 5.8 g/dL (5.8-8.1)
[2021-07-09 15:49] LABS: Thyroid Stimulating Hormone 1.8938 uIU/mL (0.35-4.94)
[2021-07-09 23:10] LABS: SARS-CoV-2 PCR by NAA Not Detected (NotDetected)
[2021-07-10 15:15] LABS: T4 6.7 ug/dL (4.87-11.72)
== END 2021-07-09 11:35 | disposition home or self-care (01) ==
LOC: LABBT 11:34
PROVIDERS: ATTEND Urology
DX: Z01.818 Encounter for other preprocedural examination (principal); E03.9 Hypothyroidism, unspecified; D51.9 Vitamin B12 deficiency anemia, unspecified; D50.8 Other iron deficiency anemias; R74.8 Abnormal levels of other serum enzymes; Z20.822 Contact with and (suspected) exposure to COVID-19
CPT/HCPCS: 80048; 80076; 84436; 84443; 85027; 85610; 85730; 93005; U0003; U0005; 93010

== ENCOUNTER 2021-07-14 06:00 | Inpatient (IN) | payer MEDICARE, BC ==
[2021-07-11 11:04] VITALS: BMI 51.7
[2021-07-14] MEDS ORDERED: Famotidine/PF 20 mg/2ml Vial ONE (06:28)
[2021-07-14] MEDS ORDERED: Fentanyl 100 MCG/2 ML VIAL ONE (06:28)
[2021-07-14] MEDS ORDERED: Sodium Chloride 0.9% 100 ML ONE (06:54)
[2021-07-14] MEDS ORDERED: Sodium Chloride 0.9% 10 ML ONE (06:54)
[2021-07-14] MEDS ORDERED: cefTRIAXone\\ROCEPHIN 2 GM VIAL ONE (06:54)
[2021-07-14] MEDS ORDERED: Vancomycin 1 GM/200 ML BAG ONE (07:03)
[2021-07-14] MEDS ORDERED: SUGAMMADEX SODIUM 200 MG/2 ML VIAL ONE (07:24)
[2021-07-14] MEDS ORDERED: Ketorolac Tromethamine 30 MG/ML VIAL ONE (07:35)
[2021-07-14] MEDS ORDERED: Phenylephrine 10 MG/ML VIAL ONE (07:35)
[2021-07-14] MEDS ORDERED: Metoclopramide HCl 10 MG/2 ML VIAL ONE (07:35)
[2021-07-14] MEDS ORDERED: PROPOFOL 200 MG/20 ML VIAL ONE (07:35)
[2021-07-14] MEDS ORDERED: ePHEDrine 50 MG/ML VIAL ONE (07:35)
[2021-07-14] MEDS ORDERED: Glycopyrrolate 0.2 MG/ML 5 ML SYRINGE ONE (07:35)
[2021-07-14] MEDS ORDERED: Lidocaine 1% PF 5 ML VIAL ONE (07:35)
[2021-07-14] MEDS ORDERED: Ondansetron PF 4 MG/2 ML Vial ONE (07:35)
[2021-07-14] MEDS ORDERED: Rocuronium Bromide 10 MG/ML (10ML VIAL) ONE (07:35)
[2021-07-14] MEDS ORDERED: Cyanocobalamin 1000 MCG/ML VIAL IM SCH (09:00)
[2021-07-14] MEDS ORDERED: Acetaminophen 500 MG TAB PO PRN ×2 (09:34→09:37)
[2021-07-14] MEDS ORDERED: B & O PR PRN (09:40)
[2021-07-14] MEDS ORDERED: Promethazine HCl 25 MG/ML VIAL IVPB PRN (09:56)
[2021-07-14] MEDS ORDERED: Promethazine HCl 25 MG/ML VIAL IM PRN (09:56)
[2021-07-14] MEDS ORDERED: Ondansetron HCl/PF 4 MG/2 ML Vial IVP PRN (09:56)
[2021-07-14] MEDS: D5 0.9% NS w/ 20 mEq KCl 1,000 ML IV SCH ×2 (11:42→23:47)
[2021-07-14] MEDS ORDERED: FLU VACC QS2021-22(65YR UP)/PF 240 MCG/0.7 ML SYRINGE IM ONE (19:00)
[2021-07-14] MEDS: Docusate 100 MG CAP PO SCH (19:35)
[2021-07-14] MEDS: Atorvastatin Calcium 40 MG TAB PO SCH (19:35)
[2021-07-14] MEDS: Gabapentin 300 MG CAP PO SCH (19:35)
[2021-07-14] MEDS: Lisinopril 20 MG TAB PO SCH (19:35)
[2021-07-14] MEDS: Carvedilol 6.25 MG TAB PO SCH (19:35)
[2021-07-14] MEDS: Allopurinol 100 MG TAB PO SCH (19:49)
[2021-07-14] MEDS ORDERED: Non-Formulary Item 1 EACH (Fluticasone Propionate [Flonase Allergy Relief] 9.9 ML Bottle) EA NARE SCH (21:00)
[2021-07-14] MEDS ORDERED: Non-Formulary Item 1 EACH (Gabapentin [Gabapentin] 600 MG Tablet) PO SCH (21:00)
[2021-07-15] MEDS: cefTRIAXone\\ROCEPHIN 1 GM in Sodium Chloride 0.9% 100 ML IVPB SCH (08:39)
[2021-07-15] MEDS: Ezetimibe 10 MG TAB PO SCH (08:42)
[2021-07-15] MEDS: Montelukast Sodium 10 mg Tablet PO SCH (08:42)
[2021-07-15] MEDS: Carvedilol 6.25 MG TAB PO SCH ×2 (08:42→22:47)
[2021-07-15] MEDS: Levothyroxine Sodium 75 MCG TAB PO SCH (08:42)
[2021-07-15] MEDS: Allopurinol 100 MG TAB PO SCH ×2 (08:42→22:48)
[2021-07-15] MEDS: Docusate 100 MG CAP PO SCH ×2 (08:42→22:47)
[2021-07-15] MEDS ORDERED: Cholecalciferol 1,000 UNITS (25 MCG) TAB PO SCH (09:00)
[2021-07-15] MEDS ORDERED: DHA PO SCH (09:00)
[2021-07-15] MEDS ORDERED: GLUC PO SCH (09:00)
[2021-07-15] MEDS ORDERED: GLUCOSAMINE PO SCH (09:00)
[2021-07-15] MEDS ORDERED: EPA PO SCH (09:00)
[2021-07-15] MEDS ORDERED: [UNRECOGNIZED DRUG - OTHER] PO SCH (09:00)
[2021-07-15] MEDS ORDERED: [UNRECOGNIZED DRUG - OTHER] PO SCH (09:00)
[2021-07-15] MEDS ORDERED: FISH PO SCH (09:00)
[2021-07-15] MEDS: Vancomycin 1 GM in Premix Bag 1 BAG IVPB SCH (09:52)
[2021-07-15] MEDS ORDERED: Ondansetron ODT 4 MG TAB PO PRN (10:38)
[2021-07-15] MEDS: Cholecalciferol 1,000 UNITS (25 MCG) TAB PO SCH (11:02)
[2021-07-15] MEDS: Fluticasone Propionate Nasal Spray 16 gm Bottle NASAL SCH ×2 (13:19→13:20)
[2021-07-15] MEDS: Liothyronine Sodium 25 MCG TAB PO SCH (13:19)
[2021-07-15] MEDS: D5 0.9% NS w/ 20 mEq KCl 1,000 ML IV SCH (13:19)
[2021-07-15] MEDS: Atorvastatin Calcium 40 MG TAB PO SCH (22:47)
[2021-07-15] MEDS: Lisinopril 20 MG TAB PO SCH (22:48)
[2021-07-15] MEDS: Gabapentin 300 MG CAP PO SCH (22:48)
[2021-07-16] MEDS: D5 0.9% NS w/ 20 mEq KCl 1,000 ML IV SCH ×2 (03:55→12:38)
[2021-07-16] MEDS: Fluticasone Propionate Nasal Spray 16 gm Bottle NASAL SCH (06:49)
[2021-07-16 07:14] LABS: Vancomycin, Trough 6.1 ug/mL
[2021-07-16] MEDS: cefTRIAXone\\ROCEPHIN 1 GM in Sodium Chloride 0.9% 100 ML IVPB SCH (08:42)
[2021-07-16] MEDS: Docusate 100 MG CAP PO SCH (08:48)
[2021-07-16] MEDS: Allopurinol 100 MG TAB PO SCH (08:48)
[2021-07-16] MEDS: Carvedilol 6.25 MG TAB PO SCH (08:49)
[2021-07-16] MEDS: Cholecalciferol 1,000 UNITS (25 MCG) TAB PO SCH (08:50)
[2021-07-16] MEDS: Ezetimibe 10 MG TAB PO SCH (08:50)
[2021-07-16] MEDS: Levothyroxine Sodium 75 MCG TAB PO SCH (08:50)
[2021-07-16] MEDS: Liothyronine Sodium 25 MCG TAB PO SCH (08:52)
[2021-07-16 09:16] LABS: #Eosinphils 0.2 thou/uL (0.0-0.7); #Lymphocytes 0.5 thou/uL (1.20-3.40); #Monocytes 0.4 thou/uL (0.11-0.59); #Neutrophils 3.3 thou/uL (1.40-6.50); %Eosinophils 3.8 % (0.0-10.0); %Lymphocytes 12.4 % (21.0-51.0); %Monocytes 8.1 % (0.0-10.0); %Neutrophils 75.8 % (42.0-75.0); Hemoglobin 12.9 g/dL (14.0-18.0); Mean Corpuscular HGB CONC 31.1 g/dL (32.0-36.0); Mean Corpuscular Hemoglobin 28.8 pg (27.0-31.0); Mean Corpuscular Volume 92.7 fL (78.0-98.0); Mean Platelet Volume 8.1 fL (7.4-10.4); Platelet Count 153 thou/uL (130-400); RBC Distribution Width 13.1 % (11.5-14.5); Red Blood Cell (RBC) Count 4.47 mill/uL (4.70-6.10); White Blood Cell (WBC) Count 4.3 thou/uL (4.8-10.8)
[2021-07-16 09:33] LABS: Anion Gap 12 mmol/L (10-20); BUN (Urea Nitrogen) 13 mg/dL (8.4-25.7); Calc. Creatinine Clearance 161 mL/min (70-130); Calcium 8.7 mg/dL (7.8-10.44); Carbon Dioxide 20 mmol/L (23-31); Chloride 111 mmol/L (98-107); Glucose 118 mg/dL (83-110); Potassium 3.6 mmol/L (3.5-5.1); Sodium 139 mmol/L (136-145)
[2021-07-16] MEDS: Vancomycin 1 GM in Premix Bag 1 BAG IVPB SCH (09:59)
[2021-07-16] MEDS: Montelukast Sodium 10 mg Tablet PO SCH (12:38)
[2021-07-16 15:27] VITALS: TEMP 97.9
[2021-07-16] MEDS ORDERED: Vancomycin 1 GM in Premix Bag 1 BAG IVPB SCH (20:00)
[2021-07-16 20:03] VITALS: BP 156/86
[2021-07-17] MEDS ORDERED: Non-Formulary Item 1 EACH (Tadalafil [Cialis] 5 MG Tablet) PO SCH (09:00)
== END 2021-07-16 16:50 | disposition home or self-care (01) | DRG 713 ==
LOC: SDC 06:00 → SURG A 10:50
PROVIDERS: ADMIT Urology; ATTEND Hospitalist
PROC: 0VB08ZZ Excision of Prostate, Via Natural or Artificial Opening Endoscopic (ICD-10-PCS; principal; 2021-07-14)
DX: C61 Malignant neoplasm of prostate (principal); Z68.43 Body mass index [BMI] 50.0-59.9, adult; N32.0 Bladder-neck obstruction; I25.10 Atherosclerotic heart disease of native coronary artery without angina pectoris; E03.9 Hypothyroidism, unspecified; I10 Essential (primary) hypertension; E78.5 Hyperlipidemia, unspecified; G47.33 Obstructive sleep apnea (adult) (pediatric); Z96.652 Presence of left artificial knee joint; N30.90 Cystitis, unspecified without hematuria; G62.9 Polyneuropathy, unspecified; N13.9 Obstructive and reflux uropathy, unspecified; E66.01 Morbid (severe) obesity due to excess calories; Z88.0 Allergy status to penicillin; Z88.2 Allergy status to sulfonamides; Z88.1 Allergy status to other antibiotic agents; Z79.82 Long term (current) use of aspirin; Z79.899 Other long term (current) drug therapy; Z95.1 Presence of aortocoronary bypass graft; Z90.49 Acquired absence of other specified parts of digestive tract
CPT/HCPCS: 36415; 80048; 80202; 85025; 88305; J0696; J1885; J2370; J2405; J2704; J2765; J3010; J3370; J3480; J3490; Q0162; S0028

== ENCOUNTER 2021-09-23 12:16 | Outpatient (CLI) | payer MEDICARE, BC | END 2021-09-23 12:17 | disposition home or self-care (01) | LOC: TBSIIMAG 12:16 | PROVIDERS: ATTEND Urology | DX: C61 Malignant neoplasm of prostate (principal) | CPT/HCPCS: 72197; 82565 ==

== ENCOUNTER 2021-12-26 00:07 | Emergency (ER) | payer MEDICARE, BC ==
[2021-12-26 01:09] LABS: Bilirubin Negative (Negative); Blood, Urine Negative (Negative); Clarity Clear (Clear); Glucose, Urine (Dipstick) Normal (Negative); Ketone, Urine Negative (Negative); Leukocyte Negative Leu/uL (Negative); Nitrite Negative (Negative); Protein, Urine (Dipstick) Negative (Neg-Trace); Specific Gravity, Urine 1.013 (1.002-1.036); Urobilinogen Normal mg/dL (Less than 2)
== END 2021-12-26 01:52 | disposition home or self-care (01) ==
LOC: ERS 00:07
DX: R39.15 Urgency of urination (principal); I10 Essential (primary) hypertension; E03.9 Hypothyroidism, unspecified; I48.91 Unspecified atrial fibrillation; Z85.46 Personal history of malignant neoplasm of prostate; Z79.899 Other long term (current) drug therapy
CPT/HCPCS: 81003; 99283

== ENCOUNTER 2022-12-04 11:35 | Emergency (ER) | payer MEDICARE, BC ==
[2022-12-04] MEDS ORDERED: Cyclobenzaprine 10 MG TAB ONE (12:31)
[2022-12-04] MEDS ORDERED: Acetaminophen 500 MG TAB ONE (12:31)
== END 2022-12-04 13:26 | disposition home or self-care (01) ==
LOC: ERS 11:35
DX: M54.42 Lumbago with sciatica, left side (principal); E03.9 Hypothyroidism, unspecified; I10 Essential (primary) hypertension; Z79.899 Other long term (current) drug therapy
CPT/HCPCS: 72100

== ENCOUNTER 2022-12-21 10:19 | Outpatient (CLI) | payer MEDICARE, BC | END 2022-12-21 10:20 | disposition home or self-care (01) | LOC: RAD 10:19 | PROVIDERS: ATTEND Internal Medicine Critical Care Medicine | DX: R06.00 Dyspnea, unspecified (principal); I10 Essential (primary) hypertension; E78.00 Pure hypercholesterolemia, unspecified | CPT/HCPCS: 36415; 71046; 80053; 80061; 85025 ==

== ENCOUNTER 2023-03-05 13:27 | Outpatient (CLI) | payer MEDICARE, BC ==
[2023-03-05 14:37] LABS: #Eosinphils 0.3 10x3/uL (0.0-0.5); #Monocytes 0.6 10x3/uL (0.0-1.1); #Neutrophils 4.5 10x3/uL (1.5-8.4); %Basophils 0.6 % (0.0-2.0); %Eosinophils 4.7 % (0.0-6.0); %Lymphocytes 13.8 % (18.0-47.0); %Monocytes 9.4 % (0.0-10.0); %Neutrophils 71.2 % (40.0-75.0); Hemoglobin 15.6 g/dL (13.5-17.5); Mean Corpuscular HGB CONC 32.2 g/dL (32.0-36.0); Mean Corpuscular Hemoglobin 30.6 pg (27.0-33.0); Mean Corpuscular Volume 95.1 fl (81.2-95.1); Mean Platelet Volume 10.1 fl (7.4-10.4); Platelet Count 201 10x3/uL (150-450); RBC Distribution Width 13.2 % (11.5-14.5); Red Blood Cell (RBC) Count 5.09 10x6/uL (4.32-5.72); White Blood Cell (WBC) Count 6.4 10x3/uL (3.5-10.5)
[2023-03-05 14:56] LABS: INR-International Normal Ratio 1.1; Prothrombin Time 11.6 sec (9.5-12.1)
[2023-03-05 14:59] LABS: Anion Gap 15 mmol/L (10-20); BUN (Urea Nitrogen) 26 mg/dL (8.4-25.7); Calc. Creatinine Clearance 0 mL/min (70-130); Calcium 9.6 mg/dL (7.8-10.44); Carbon Dioxide 21 mmol/L (23-31); Chloride 109 mmol/L (98-107); Estimated GFR 46; Glucose 88 mg/dL (83-110); Potassium 4.8 mmol/L (3.5-5.1); Sodium 140 mmol/L (136-145)
== END 2023-03-05 13:28 | disposition home or self-care (01) ==
LOC: LABBT 13:27
PROVIDERS: ATTEND Orthopaedic Surgery
DX: Z01.812 Encounter for preprocedural laboratory examination (principal); M17.11 Unilateral primary osteoarthritis, right knee
CPT/HCPCS: 80048; 85025; 85610; 87081

== ENCOUNTER 2023-03-05 13:30 | Inpatient (IN) | payer MEDICARE, BC ==
[2023-03-09] MEDS ORDERED: Sodium Chloride 0.9% 100 ML ONE ×2 (09:14→11:06)
[2023-03-09] MEDS ORDERED: Tranexamic Acid 1,000 MG/10 ML VIAL ONE (09:14)
[2023-03-09] MEDS ORDERED: VANCOMYCIN 2 GRAM/500 ML BAG 2 GM in Premix Bag 1 BAG IVPB SCH (09:15)
[2023-03-09] MEDS ORDERED: Ropivacaine 0.5% HCl/PF (150 MG/30 ML VIAL) ONE (09:54)
[2023-03-09] MEDS ORDERED: Midazolam HCl 2 mg/2 ml Vial ONE (09:54)
[2023-03-09] MEDS ORDERED: fentaNYL 50 mcg/mL 1 mL Vial ONE ×3 (09:54→14:05)
[2023-03-09] MEDS ORDERED: fentaNYL 50 mcg/mL 1 mL Vial SLOW IVP PRN (10:59)
[2023-03-09] MEDS ORDERED: HYDROcodone/Acetaminophen 5/325 mg Tablet PO PRN (11:00)
[2023-03-09] MEDS ORDERED: Ondansetron PF 4 MG/2 ML Vial IVP PRN ×2 (11:00→11:09)
[2023-03-09] MEDS ORDERED: Ropivacaine 0.2% 550 ML 550 ML NERVE BLCK SCH (11:00)
[2023-03-09] MEDS ORDERED: traMADol HCl 50 MG TAB PO PRN (11:00)
[2023-03-09] MEDS ORDERED: Promethazine HCl 25 MG/ML VIAL IM PRN ×3 (11:00→13:07)
[2023-03-09] MEDS ORDERED: Zolpidem Tartrate 5 MG TAB PO PRN ×2 (11:00→11:09)
[2023-03-09] MEDS ORDERED: CEFAZOLIN 2 GM VIAL ONE (11:06)
[2023-03-09] MEDS ORDERED: diphenhydrAMINE 25 MG CAP PO PRN (11:09)
[2023-03-09] MEDS ORDERED: HYDROcodone/Acetaminophen 10/325 mg Tablet PO PRN ×2 (11:09)
[2023-03-09] MEDS ORDERED: Famotidine/PF 20 mg/2ml Vial ONE (11:15)
[2023-03-09] MEDS ORDERED: Fentanyl 250 MCG/5 ML VIAL ONE (11:15)
[2023-03-09] MEDS ORDERED: Cyanocobalamin 1000 MCG/ML VIAL IM SCH (11:15)
[2023-03-09] MEDS ORDERED: PHENYLEPHRINE-NS 100 MCG/ML 10 ML SYRINGE ONE (11:46)
[2023-03-09] MEDS ORDERED: Ondansetron PF 4 MG/2 ML Vial ONE (11:46)
[2023-03-09] MEDS ORDERED: Lidocaine 1% PF 5 ML VIAL ONE (11:46)
[2023-03-09] MEDS ORDERED: ePHEDrine Sulfate 50 MG/10 ML VIAL ONE (11:46)
[2023-03-09] MEDS ORDERED: PROPOFOL 200 MG/20 ML VIAL ONE (11:46)
[2023-03-09] MEDS ORDERED: Rocuronium Bromide 10 MG/ML (10ML VIAL) ONE (11:46)
[2023-03-09] MEDS ORDERED: Ondansetron HCl/PF 4 MG/2 ML Vial IVP PRN (13:07)
[2023-03-09] MEDS ORDERED: HYDROmorphone 2 MG/ML VIAL SLOW IVP PRN (13:07)
[2023-03-09] MEDS ORDERED: Meperidine HCl/PF 25 MG/ML VIAL SLOW IVP PRN (13:07)
[2023-03-09] MEDS ORDERED: SUGAMMADEX SODIUM 200 MG/2 ML VIAL ONE (13:08)
[2023-03-09] MEDS ORDERED: HYDROmorphone 0.5 MG/0.5 ML SYRINGE ONE ×3 (13:33→13:57)
[2023-03-09] MEDS ORDERED: Bupivacaine PF 0.5% 30 ML VIAL ONE (13:38)
[2023-03-09] MEDS: Ketorolac Tromethamine 30 MG/ML VIAL IVP SCH ×2 (15:14→21:08)
[2023-03-09] MEDS: Acetaminophen 325 MG TAB PO PRN ×2 (15:15→19:05)
[2023-03-09 17:09] VITALS: BMI 50.6
[2023-03-09] MEDS: Sodium Chloride 0.9% 1,000 ML IV SCH ×2 (17:18→23:40)
[2023-03-09] MEDS: CEFAZOLIN 2 GM in Sodium Chloride 0.9% 100 ML IVPB SCH (18:22)
[2023-03-09] MEDS: Ezetimibe 10 MG TAB PO SCH (21:00)
[2023-03-09] MEDS: Gabapentin 300 MG CAP PO SCH (21:01)
[2023-03-09] MEDS: Fluticasone Propionate Nasal Spray 16 gm Bottle NASAL SCH (21:01)
[2023-03-09] MEDS: Lisinopril 10 MG TAB PO SCH (21:02)
[2023-03-09] MEDS: Senokot S 8.6-50 MG TAB PO SCH (21:03)
[2023-03-09] MEDS: Allopurinol 100 MG TAB PO SCH (21:03)
[2023-03-09] MEDS: Atorvastatin Calcium 40 MG TAB PO SCH (21:06)
[2023-03-09] MEDS: Montelukast Sodium 10 mg Tablet PO SCH (21:06)
[2023-03-09] MEDS: Aspirin 81 mg Enteric Coated Tablet PO SCH (21:06)
[2023-03-09] MEDS: Spironolactone 25 MG TAB PO SCH (21:07)
[2023-03-09] MEDS: Colchicine 0.6 MG TAB PO SCH (21:07)
[2023-03-09] MEDS: DULoxetine 60 MG CAP PO SCH (21:07)
[2023-03-10] MEDS: CEFAZOLIN 2 GM in Sodium Chloride 0.9% 100 ML IVPB SCH (03:49)
[2023-03-10] MEDS: traMADol HCl 50 MG TAB PO PRN ×2 (03:53→14:03)
[2023-03-10 05:44] LABS: Hematocrit 41.7 % (42.0-52.0); Hemoglobin 13.4 g/dL (14.0-18.0); Mean Corpuscular HGB CONC 32.1 g/dL (32.0-36.0); Mean Corpuscular Hemoglobin 30.8 pg (27.0-31.0); Mean Corpuscular Volume 95.9 fl (78.0-98.0); Mean Platelet Volume 9.9 fL (7.4-10.4); Platelet Count 146 10x3/uL (130-400); RBC Distribution Width 13.1 % (11.5-14.5); Red Blood Cell (RBC) Count 4.35 mill/uL (4.70-6.10); White Blood Cell (WBC) Count 7.2 10x3/uL (4.8-10.8)
[2023-03-10] MEDS: Levothyroxine Sodium 75 MCG TAB PO SCH (06:15)
[2023-03-10] MEDS: Ketorolac Tromethamine 30 MG/ML VIAL IVP SCH ×3 (06:15→21:19)
[2023-03-10] MEDS ORDERED: Non-Formulary Item 1 EACH (Multivitamin [Multi-Vitamin Daily] 1 TABLET Tablet) PO SCH (09:00)
[2023-03-10] MEDS: Liothyronine Sodium 25 MCG TAB PO SCH (09:30)
[2023-03-10] MEDS: Cholecalciferol 1,000 UNITS (25 MCG) TAB PO SCH (09:31)
[2023-03-10] MEDS: Empagliflozin 25 MG TAB PO SCH (09:31)
[2023-03-10] MEDS: Multivitamin W/ Minerals 1 TAB PO SCH (09:31)
[2023-03-10] MEDS: Allopurinol 100 MG TAB PO SCH ×2 (09:31→21:15)
[2023-03-10] MEDS: Senokot S 8.6-50 MG TAB PO SCH ×2 (09:31→21:18)
[2023-03-10] MEDS: Aspirin 81 mg Enteric Coated Tablet PO SCH ×2 (09:31→21:15)
[2023-03-10] MEDS: Fluticasone Propionate Nasal Spray 16 gm Bottle NASAL SCH ×2 (09:31→21:20)
[2023-03-10] MEDS: Ferrous Gluconate 324 MG TAB PO SCH ×2 (09:32→18:11)
[2023-03-10] MEDS: Colchicine 0.6 MG TAB PO SCH ×2 (10:46→21:19)
[2023-03-10] MEDS: Sodium Chloride 0.9% 1,000 ML IV SCH ×2 (13:51→19:00)
[2023-03-10] MEDS: Montelukast Sodium 10 mg Tablet PO SCH (21:12)
[2023-03-10] MEDS: Spironolactone 25 MG TAB PO SCH (21:14)
[2023-03-10] MEDS: Gabapentin 300 MG CAP PO SCH (21:14)
[2023-03-10] MEDS: Ezetimibe 10 MG TAB PO SCH (21:15)
[2023-03-10] MEDS: DULoxetine 60 MG CAP PO SCH (21:15)
[2023-03-10] MEDS: Lisinopril 10 MG TAB PO SCH ×2 (21:17→21:27)
[2023-03-10] MEDS: Acetaminophen 325 MG TAB PO PRN (21:18)
[2023-03-10] MEDS: Atorvastatin Calcium 40 MG TAB PO SCH (21:19)
[2023-03-10] MEDS ORDERED: Ciprofloxacin 500 MG TAB PO SCH (22:00)
[2023-03-11] MEDS: Sodium Chloride 0.9% 1,000 ML IV SCH ×2 (04:00→16:33)
[2023-03-11] MEDS: Ketorolac Tromethamine 30 MG/ML VIAL IVP SCH ×2 (06:19→16:33)
[2023-03-11] MEDS: Levothyroxine Sodium 75 MCG TAB PO SCH (06:19)
[2023-03-11] MEDS: Acetaminophen 325 MG TAB PO PRN (09:41)
[2023-03-11] MEDS: Fluticasone Propionate Nasal Spray 16 gm Bottle NASAL SCH (09:41)
[2023-03-11] MEDS: Multivitamin W/ Minerals 1 TAB PO SCH (09:42)
[2023-03-11] MEDS: Colchicine 0.6 MG TAB PO SCH (09:42)
[2023-03-11] MEDS: Cholecalciferol 1,000 UNITS (25 MCG) TAB PO SCH (09:42)
[2023-03-11] MEDS: Empagliflozin 25 MG TAB PO SCH (09:42)
[2023-03-11] MEDS: Senokot S 8.6-50 MG TAB PO SCH (09:42)
[2023-03-11] MEDS: Ferrous Gluconate 324 MG TAB PO SCH ×2 (09:42→18:06)
[2023-03-11] MEDS: Aspirin 81 mg Enteric Coated Tablet PO SCH (09:42)
[2023-03-11] MEDS: Allopurinol 100 MG TAB PO SCH (09:42)
[2023-03-11] MEDS: Liothyronine Sodium 25 MCG TAB PO SCH (10:39)
[2023-03-11] MEDS: HYDROcodone/Acetaminophen 5/325 mg Tablet PO PRN ×2 (15:12→19:11)
[2023-03-11 15:50] VITALS: BP 119/63; TEMP 97.6
== END 2023-03-11 19:30 | DRG 470 ==
LOC: INTOOBSV 03-09 08:28 → SURG A 03-09 08:28 → OBSVTOIN 03-09 19:29
PROVIDERS: ADMIT Orthopaedic Surgery; ATTEND Orthopaedic Surgery
PROC: 0SRC0J9 Replacement of Right Knee Joint with Synthetic Substitute, Cemented, Open Approach (ICD-10-PCS; principal; 2023-03-09)
PROC: 5A09357 Assistance with Respiratory Ventilation, Less than 24 Consecutive Hours, Continuous Positive Airway Pressure (ICD-10-PCS; 2023-03-10)
DX: M17.11 Unilateral primary osteoarthritis, right knee (principal); Z68.43 Body mass index [BMI] 50.0-59.9, adult; N39.0 Urinary tract infection, site not specified; G62.9 Polyneuropathy, unspecified; E66.9 Obesity, unspecified; I10 Essential (primary) hypertension; E03.9 Hypothyroidism, unspecified; Z98.890 Other specified postprocedural states
CPT/HCPCS: 36415; 85027; 87086; A4306; C1776; J1170; J1885; J2250; J2405; J2704; J2795; J3010; J3490; S0020; S0028

== ENCOUNTER 2023-05-18 12:39 | Outpatient (CLI) | payer MEDICARE, BC ==
[~2023-05-18 12:39] MED LIST changes: +Iopamidol 370 76% 100 ML VIAL ONE; -Iopamidol-370 76% 500 ML 1 ML ONE
== END 2023-05-18 12:40 | disposition home or self-care (01) ==
LOC: CT 12:39
PROVIDERS: ATTEND Urology
DX: D49.511 Neoplasm of unspecified behavior of right kidney (principal); D49.512 Neoplasm of unspecified behavior of left kidney
CPT/HCPCS: 74170; 82565